=== PATIENT | male | born 1980 | race American Indian/Alaskan Native ===

== ENCOUNTER 2019-04-06 13:46 | Emergency (ER) | payer SELFPAY ==
--- NOTE | 2019-04-06 15:13 | Emergency Department Report ---
Blank Doc - Documentation Documentation: 38 Y/O MALE SMOKER PRESENTS TO ED C/O DIARRHEA, MYALGIA FEVERISH, DIZZINESS AND ABDOMINAL PAIN.
[2019-04-06 15:32] LABS: Hematocrit 45.9 % (35.5-45.6); Hemoglobin 15.2 gm/dl (11.8-15.2); Mean Corpuscular HGB Conc 33 % (32-34); Mean Corpuscular Volume 77 fl (84-94); Red Blood Count 5.98 M/mm3 (3.65-5.03)
[2019-04-06 15:55] LABS: Alanine Aminotransferase 28 units/L (7-56); Albumin 4.5 g/dL (3.9-5); BUN/Creatinine Ratio 10; Blood Urea Nitrogen 9 mg/dL (9-20); Calcium 9.4 mg/dL (8.4-10.2); Hemolysis Index 9
--- NOTE | 2019-04-06 16:08 | XRay Report ---
CHEST 2 VIEWS INDICATION: COUGH. COMPARISON: None. FINDINGS: Support devices: None. Heart: Within normal limits. Pulmonary vasculature: Normal. Lungs/pleura: No acute air space or interstitial disease. No pneumothorax. Additional findings: None. IMPRESSION: Normal chest. Signer Name: Madi Ding MD Signed: 04/06/2019 4:04 PM Workstation Name: [id number]
[2019-04-06] MEDS ORDERED: AZITHROMYCIN 500 MG in SODIUM CHLORIDE 0.9% 250ML 250 ML IV ONE (17:17)
[2019-04-06] MEDS ORDERED: methylPREDNISolone Sod Succinate 125 MG/2 ML INJ IV ONE (17:17)
[2019-04-06] MEDS ORDERED: ALBUTEROL 2.5 MG/3 ML NEBU IH ONE (17:17)
[2019-04-06] MEDS ORDERED: SODIUM CHLORIDE 0.9% 1000 ML 1,000 ML IV ONE (17:17)
[2019-04-06] MEDS ORDERED: IBUPROFEN 800 MG TAB PO ONE (17:18)
--- NOTE | 2019-04-06 17:20 | Emergency Department Report ---
Minor Respiratory - HPI Chief Complaint: Upper Respiratory Infection Stated Complaint: DEHYDRATED/WEAK/HEAD PAIN Time Seen by Provider: 04/06/19 15:09 Duration: 3 Days Pain Location: Chest Severity: moderate Minor Respiratory: Yes Able to Tolerate Fluids, Yes Cough, No Rhinorrhea, No Sore Throat, No Ear Pain, No Sick Contacts, No Hemoptysis, No Chest Pain, No Shortness of Breath, No Fever Other History: 38 YO AA MALE COMES TO ER WITH COUGH AND CONGESTION OFF AND ON FOR WEEKS. HE HAS BEEN TOLD IN THE PAST HE HAS BRONCHITIS. HE IS A CIG SMOKER. DENIES FEVER OR CHILLS. YELLOW SPUTUM. NON ILL NON TOXIC ON EXAM. DENIES CP. DENIES SWELING OF LEGS. ED Review of Systems ROS: Stated complaint: DEHYDRATED/WEAK/HEAD PAIN Other details as noted in HPI Comment: All other systems reviewed and negative ED Past Medical Hx - Past Medical History Previous Medical History?: Yes Additional medical history: sickle cell trait - Surgical History Past Surgical History?: No - Family History Family history: no significant - Social History Smoking Status: Current Every Day Smoker Substance Use Type: None - Medications Home Medications: Home Medications Medication Instructions Recorded Confirmed Last Taken Type Amoxicillin [Trimox CAP] 500 mg PO Q8H #30 capsule 08/02/13 Unknown Rx HYDROcodone/APAP 5-325 [[place]um 1 each PO Q6HR PRN #14 tablet 08/02/13 Unknown Rx 5/325 mg] Albuterol INH(or & Nicu Only) 2 puff IH QID PRN #1 inhalation 04/06/19 Unknown Rx [ProAir HFA Inhaler] Azithromycin [Zithromax Z-YOKO] 250 mg PO DAILY #6 tablet 04/06/19 Unknown Rx Benzonatate [Tessalon Perles] 100 mg PO Q12H PRN #20 capsule 04/06/19 Unknown Rx Cetirizine HCl [ZyrTEC] 10 mg PO DAILY #30 capsule 04/06/19 Unknown Rx Fluticasone [Flonase] 1 spray NS QDAY #1 bottle 04/06/19 Unknown Rx predniSONE [Deltasone] 20 mg PO DAILY #5 tablet 04/06/19 Unknown Rx Minor Respiratory Exam - Exam General: Vital signs noted. No distress. Alert and acting appropriately. HEENT: Yes Moist Mucous Membranes, No Pharyngeal Erythema, No Pharyngeal Exudates, No Rhinorrhea, No Conjuctival Injection, No Frontal Tenderness, No Maxillary Tenderness Ear: Neither TM Bulge, Neither TM Erythema, Neither EAC Pain, Neither EAC Discharge Neck: Yes Supple, No Adenopathy Lungs: Yes Good Air Exchange, Yes Wheezes, No Ronchi, No Stridor, No Cough, No Labored Respirations, No Retractions, No Use of Accessory Muscles, No Other Abnormal Lung Sounds Heart: Yes Regular, No Murmur Abdomen: Yes Normal Bowel Sounds, No Tenderness, No Peritoneal Signs Skin: No Rash, No Edema Neurologic: Alert and oriented, no deficits. Musculoskeletal: Unremarkable. ED Course Vital Signs 04/06/19 15:10 Temperature 99.4 F Pulse Rate 100 H Respiratory 18 Rate Blood Pressure 119/88 O2 Sat by Pulse 93 Oximetry ED Medical Decision Making - Lab Data Result diagrams: 04/06/19 15:22 04/06/19 15:22 - Radiology Data Radiology results: report reviewed, image reviewed - Medical Decision Making Lab Results 04/06/19 04/06/19 Range/Units 15:22 15:22 WBC 3.1 L (4.5-11.0) K/mm3 RBC 5.98 H (3.65-5.03) M/mm3 Hgb 15.2 (11.8-15.2) gm/dl Hct 45.9 H (35.5-45.6) % MCV 77 L (84-94) fl MCH 25 L (28-32) pg MCHC 33 (32-34) % RDW 13.0 L (13.2-15.2) % [place] % (Auto) [facility] Counsel[employer] Sodium 133 L (137-145) mmol/L Potassium 4.5 (3.6-5.0) mmol/L Chloride 92.9 L (98-107) mmol/L Carbon Dioxide 28 (22-30) mmol/L Anion Gap 17 mmol/L BUN 9 (9-20) mg/dL Creatinine 0.9 (0.8-1.5) mg/dL Estimated GFR > 60 ml/min BUN/Creatinine Ratio 10 % Glucose 98 (75-100) mg/dL Calcium 9.4 (8.4-10.2) mg/dL Total Bilirubin 0.60 (0.1-1.2) mg/dL AST 40 (5-40) units/L ALT 28 (7-56) units/L Alkaline Phosphatase 97 (35-129) units/L Total Protein 7.8 (6.3-8.2) g/dL Albumin 4.5 (3.9-5) g/dL Albumin/Globulin Ratio 1.4 % Lipase 40 (13-60) units/L Vital Signs 04/06/19 15:10 Temperature 99.4 F Pulse Rate 100 H Respiratory 18 Rate Blood Pressure 119/88 O2 Sat by Pulse 93 Oximetry MEDICATED IN ER CIG SMOKER VSS NON ILL NON TOXIC AFEBRILE TAKING PO AMBULATORY PT EDUCATED ON SMOKING AND EFFECT ON HIS LUNGS DC HOME AND HE IS TO FOLLOW UP WITH PCP. PT VERBALIZES UNDERSTANDING - Differential Diagnosis URTI/PNA/FLU Critical care attestation.: If time is entered above; I have spent that time in minutes in the direct care of this critically ill patient, excluding procedure time. ED Disposition Clinical Impression: Bronchitis Disposition: DC- TO HOME OR SELFCARE Is pt being admited?: No Does the pt Need Aspirin: No Condition: Stable Instructions: Acute Bronchitis (ED), Chronic Bronchitis (ED) Additional Instructions: stop smoking meds as ordered today follow up with pcp in 48 hours to be sure you are getting better referral below Prescriptions: predniSONE [Deltasone] 20 mg PO DAILY #5 tablet Fluticasone [Flonase] 1 spray NS QDAY #1 bottle Albuterol INH(or & Nicu Only) [ProAir HFA Inhaler] 2 puff IH QID PRN #1 inhalation PRN Reason: Shortness Of Breath Benzonatate [Tessalon Perles] 100 mg PO Q12H PRN #20 capsule PRN Reason: Cough Azithromycin [Zithromax Z-YOKO] 250 mg PO DAILY #6 tablet Cetirizine HCl [ZyrTEC] 10 mg PO DAILY #30 capsule Referrals: REYMUNDO CULLEN MD [Staff Physician] - 3-5 Days Time of Disposition: 17:19
[2019-04-06 17:57] LABS: Total Cells Counted 100
[2019-04-06 17:58] LABS: Basophils % (Manual) 0 % (0.0-1.8)
[2019-04-06 18:00] LABS: Platelet Estimate Consistent w Auto
[2019-04-06 18:01] LABS: Anisocytosis 1+; Large Platelets Few
[2019-04-06 18:03] LABS: Platelet Count 170 K/mm3 (140-440)
[2019-04-06] MEDS ORDERED: AZITHROMYCIN 250 MG TAB ONE (18:25)
[2019-04-06 18:44] VITALS: BP 120/84
== END 2019-04-06 18:42 | disposition home or self-care (01) ==
LOC: ED 13:46
DX: J40 Bronchitis, not specified as acute or chronic (principal); F17.200 Nicotine dependence, unspecified, uncomplicated; Z79.899 Other long term (current) drug therapy
CPT/HCPCS: 36415; 71046; 80053; 83690; 85007; 85025; 94640; 96365; 96375; 99284; J0456; J2930; J7030; J7050